=== PATIENT | male | born 1955 | race Caucasian/White ===

== ENCOUNTER → 2016-12-17 | Outpatient (CLI) | payer BC ==
[~2016-12-17] MED LIST: BRVIN INH; CALC600T9 PO; CINN1CAP2 PO; FLUT0.15; GARL10007 PO; MAGNESIUM PO; MULT-513 PO; OMEG10002 PO; PULMICORT FLEXHALER INH; VORI1TAB13 PEG
--- NOTE | 2016-12-17 14:14 | DIAGNOSTIC IMAGING REPORT ---
CHEST CT WITHOUT CONTRAST CT DOSE: 722.44 mGy.cm HISTORY: Atelectasis R91.1 Solitary pulmonary [id number] Chronic obstructive pulmonal TECHNIQUE: Multiaxial CT images of the chest were performed without contrast. COMPARISON: 06/18/2015 FINDINGS: Lungs are improved in aeration compared to the prior study. No evidence for focal infiltrate or significant nodular pathology. Appears described atelectatic change anterior margin of lingula is considerably improved with only a trace amount of residual. No significant mediastinal or hilar adenopathy. IMPRESSION: 1. Significant improvement in the CT of the chest with the lungs now essentially clear. 2. Minimal residual atelectatic change anterior margin of the lingula Electronically signed by: Giovanny Hanna M.D. 12/17/2016 2:13 PM Dictated Date/Time: 12/17/2016 2:09 PM
== END | disposition home or self-care (01) ==
LOC: C.CTS 13:55
PROVIDERS: ATTEND Internal Medicine Critical Care Medicine
DX: B44.81 Allergic bronchopulmonary aspergillosis (principal); J44.9 Chronic obstructive pulmonary disease, unspecified; R05 Cough; R91.1 Solitary pulmonary nodule

== ENCOUNTER → 2016-12-29 | Outpatient (CLI) | payer BC ==
--- NOTE | 2016-12-29 13:35 | DIAGNOSTIC IMAGING REPORT ---
FUSION CT SINUSES W/O HISTORY: J32.9 Chronic sinusitis TECHNIQUE: Multiaxial CT images of the sinuses were performed reformatted in the coronal plane without contrast. Fusion CT sinus protocol was also obtained. COMPARISON STUDY: Sinus CT 06/18/2015. FINDINGS: Mild mucosal thickening within the bilateral frontal sinuses with partial opacification the right frontoethmoidal recess and opacification of the left frontoethmoidal recess. There is near complete opacification of the ethmoid air cells which has slightly improved in the interval. Mild mucosal thickening within the sphenoid sinuses and right maxillary sinus. Moderate to severe mucosal thickening within the left maxillary sinus which has progressed. Trace right and moderate left maxillary sinus fluid levels. There is near complete opacification of the left maxillary sinus. Thinning of the bony septa within the ethmoid air cells, unchanged. This is consistent with chronic change. Bilateral anterior clinoids are pneumatized. The lamina papyracea and orbital floors are intact. No evidence for carotid canal dehiscence. The mastoid air cells are clear. Left nasal septal deviation with a left-sided nasal spur. Partial opacification of the right ostiomeatal unit and complete opacification of the left ostiomeatal unit. Bilateral Fer cells, right greater than left. The orbits and visualized brain parenchyma are unremarkable. IMPRESSION: 1. Acute on chronic paranasal sinusitis as described, the majority of which has improved in the interval. However, there is progressive opacification of the left maxillary sinus in comparison to the prior study. 2. Left nasal septal deviation with a left-sided nasal spur. Electronically signed by: Poncho Ley M.D. 12/29/2016 1:33 PM Dictated Date/Time: 12/29/2016 1:19 PM
== END | disposition home or self-care (01) ==
LOC: C.CTS 13:08
PROVIDERS: ATTEND Surgery
DX: J32.9 Chronic sinusitis, unspecified (principal); J34.2 Deviated nasal septum; J34.89 Other specified disorders of nose and nasal sinuses

== ENCOUNTER → 2017-07-07 | Outpatient (CLI) | payer BC ==
[~2017-07-07] MED LIST changes: +OPTIRAY 320 IV PRN
--- NOTE | 2017-07-07 18:25 | DIAGNOSTIC IMAGING REPORT ---
CT OF THE ABDOMEN AND PELVIS WITH CONTRAST CLINICAL HISTORY: Incarcerated hernia. COMPARISON STUDY: None. TECHNIQUE: Following IV administration of 93 mL of Optiray-320, axial images of the abdomen and pelvis were obtained from the lung bases to the proximal femurs. Images were reviewed in the axial, sagittal, and coronal planes. IV contrast was administered without complication. A dose lowering technique was utilized adhering to the principles of ALARA. Oral contrast was administered. CT DOSE: 1067.69 mGy.cm FINDINGS: The lung bases are clear. Fatty infiltration of the liver is noted. The spleen, adrenal glands, kidneys and pancreas are unremarkable. There is no hydronephrosis. There is a possible 2 mm nonobstructing left renal calculus. Caliber and wall thickness of small and large bowel are normal. The appendix is normal. There is no free fluid. There is no lymphadenopathy or abscess. There is a tiny fat-containing umbilical hernia. No inguinal hernia is identified by CT. No suspicious skeletal lesions identified. IMPRESSION: 1. No acute process within the abdomen or pelvis. 2. Tiny fat-containing umbilical hernia with minimal adjacent infiltration. 3. No bowel obstruction. Normal appendix. 4. Fatty liver. Electronically signed by: Sean Hale M.D. 07/07/2017 6:23 PM Dictated Date/Time: 07/07/2017 6:13 PM
== END | disposition home or self-care (01) ==
LOC: C.CTS 15:23
PROVIDERS: ATTEND Internal Medicine Critical Care Medicine
DX: K45.0 Other specified abdominal hernia with obstruction, without gangrene (principal); I26.02 Saddle embolus of pulmonary artery with acute cor pulmonale; R06.02 Shortness of breath

== ENCOUNTER 2017-09-04 08:04 | Day surgery (SDC) | payer BC ==
[~2017-09-04] VITALS: Ht 180.3 cm; Wt 102.7 kg
[2017-09-04] VITALS (14 sets, daily range): BP systolic 91–121; BP diastolic 43–89; PULSE 59–101; TEMP 36.5–36.6; O2SAT 95–100; Ht 180.3 cm; Wt 102.7 kg
[~2017-09-04 08:04] MED LIST changes: -OPTIRAY 320 IV PRN
[2017-09-04] MEDS ORDERED: LIDOCAINE 4% W/AFRIN NASAL SOLN 4ML ONE (08:05)
[2017-09-04] MEDS ORDERED: LEVALBUTEROL 1.25MG/3ML NEB INH ONE (08:05)
[2017-09-04] MEDS ORDERED: MIDAZOLAM HCL 5 MG/ML 1 ML VIAL IV ONE (08:05)
[2017-09-04] MEDS ORDERED: FENTANYL CITRATE INJ 50 MCG/1 ML 2 ML VIAL IV ONE (08:05)
[2017-09-04] MEDS ORDERED: LIDOCAINE HCL 2% LOCAL 50ML VIAL INFIL ONE (08:05)
[2017-09-04] MEDS ORDERED: PRED20TA PO (09:04)
[2017-09-04] MEDS ORDERED: ALBINS/ INH (09:05)
--- NOTE | 2017-09-04 10:06 | History & Physical Bridge Note ---
H&P Re-Evaluation Bridge Note: I have examined the patient, reviewed the History & Physical and in the interval since the performance of the History & Physical I have noted the following changes of clinical significance: No changes noted
--- NOTE | 2017-09-04 10:07 | Procedure Note ---
Pre-Mod Sedation Assessment General Date of Moderate Sedation: Sep 04, 2017. Vital Signs: Vital Signs Past 12 Hours Date Time Temp Pulse Resp B/P (MAP) Pulse Ox O2 Delivery O2 Flow Rate FiO2 09/04/17 10:03 36.5 66 19 117/74 96 Room Air 09/04/17 09:10 36.5 66 19 117/74 (88) 96 Room Air Review Airway Class: II Pre-Sedation Airway Assessment Oral Cavity: WNL Short Thick Neck: No Hx of Sleep Apnea: No Smoking Status: Former Smoker Mallampati Classification: Class II ASA Classification: Class II Procedure Planning Contraindications-for Mod Sed: None Yes Notes The planned sedation has been discussed with the patient and consent obtained. I have identified the patient, determined the appropriateness of sedation and have assessed the patient immediately prior to the procedure. All medicine(s) and interventions are by my order.
--- NOTE | 2017-09-04 10:46 | Discharge Instructions ---
Discharge Instructions Date of Service Sep 04, 2017. Admission Reason for Admission: Copd, Asthma, Sob Discharge Discharge Diagnosis / Problem: Chronic Mucopururlent Bronchitis Discharge Goals Goal(s): Therapeutic intervention Activity Recommendations Activity Limitations: resume your previous activity Lifting Limitations: none Exercise/Sports Limitations: none May Resume Sexual Activity: when tolerated Shower/Bathe: no limitations Driving or Machine Use: resume 1 day after discharge none . Current Hospital Diet Patient's current hospital diet: Discharge Diet Recommended Diet: Regular Diet Fluid Restriction: None Pending Studies Studies pending at discharge: no Medical Emergencies . Who to Call and When: Medical Emergencies: If at any time you feel your situation is an emergency, please call 911 immediately. . Non-Emergent Contact Non-Emergency issues call your: Form Tamper Operator Call Non-Emergent contact if: temperature is above 101 ACTIVITY RECOMMENDATIONS: * Rest today, resume normal activity tomorrow. * Do not drive today. SPECIAL CARE INSTRUCTIONS: * Call your physician if you experience any chest or shoulder pain, fever, coughing, spitting up blood (more than 2 teaspoons) or excessive shortness of breath. * Remove dressing from IV site (where needle was placed into the vein) after 2 hours. Apply a warm, moist compress to site if irritation occurs. Call physician if site becomes red or painful to touch. FOLLOW UP VISIT: * Keep any scheduled doctor appointments. . . "Provider Documentation" section prepared by Hugo Estes. . VTE Core Measure Inpt VTE Proph given/why not?: Treatment not indicated
--- NOTE | 2017-09-04 11:13 | OPERATIVE REPORT ---
DATE OF OPERATION: 09/04/2017 PROCEDURE: Fiberoptic bronchoscopy with bronchoalveolar lavage. SURGEON: Dr. Estes. INDICATIONS: Chronic cough/lingula atelectasis. ANESTHESIA PREOPERATIVELY: None. ANESTHESIA DURING PROCEDURE: 5 mg IV Versed, 50 mcg IV fentanyl, 20 mL 2% Xylocaine spray above and below the cords, 4% viscous Xylocaine intranasally. PROCEDURE: Fiberoptic bronchoscope was inserted into the right naris with minimal difficulty and passed to the level of the true vocal cords. The cords appeared to approximate normally with phonation without evidence of lesions or paralysis. The area was anesthetized with 2% Xylocaine spray and the scope was then introduced in the right and left tracheobronchial tree. The trachea was within normal limits. The tammy was sharp. The right main stem bronchus was found to be free of endobronchial lesions. The right upper lobe, the apical posterior, anterior segments, bronchus intermedius, right middle lobe and the medial and lateral segments and all basilar segments right lower lobe were found to be free of endobronchial lesions. A moderate amount of mucopurulent secretion was lavaged from right lower lobe until clear. Mucus pitting with bronchial crypts and clefts were seen throughout the right tracheobronchial tree. Left tracheobronchial tree was explored and no endobronchial lesions were seen. The left upper lobe, the apical-posterior and anterior segments, lingular subdivision, left lower lobe were free of endobronchial lesions down to subsegmental bronchi. Superior segment left lower lobe demonstrated most inflammatory response and had significant mucus pitting with mucopurulent secretion lavaged from it until clear. All basilar segments left lower lobe and the left upper division along with its segmental bronchi were found to be free of endobronchial lesions. A global degree of inflammatory mucosal change was seen throughout the left tracheobronchial tree. No brushings or biopsies were deemed necessary. Fluoroscopy was not utilized. The procedure was terminated. The patient tolerated the procedure well and was given a nebulizer treatment with Xopenex 1.25 mg then transferred to the medical treatment unit hemodynamically stable with no signs of respiratory compromise. Will await microbiological and cytologic examination of the bronchial washings. I attest to the content of the Intraoperative Record and any orders documented therein. Any exception s are noted below.
[2017-09-04] MEDS ORDERED: NURSING VERBAL MED ORDER ONE (11:15)
[2017-09-08 15:31] LABS: HERPES SIMPLEX CULT SOURCE OTHER-LLL BRONCH WAS; HERPES SIMPLEX VIRUS CULT NOT ISOLATED (NOT ISOLATED)
== END 2017-09-04 12:40 | disposition home or self-care (01) ==
LOC: C.ACU 08:04
PROVIDERS: ATTEND Internal Medicine Pulmonary Disease
DX: R05 Cough (principal); J98.11 Atelectasis; R00.0 Tachycardia, unspecified; J44.9 Chronic obstructive pulmonary disease, unspecified; B44.81 Allergic bronchopulmonary aspergillosis; I26.99 Other pulmonary embolism without acute cor pulmonale; J32.9 Chronic sinusitis, unspecified; K21.9 Gastro-esophageal reflux disease without esophagitis; K45.0 Other specified abdominal hernia with obstruction, without gangrene; R59.0 Localized enlarged lymph nodes; R91.1 Solitary pulmonary nodule; Z87.891 Personal history of nicotine dependence; Z79.899 Other long term (current) drug therapy

== ENCOUNTER 2018-01-25 07:40 | Day surgery (SDC) | payer BC ==
[~2018-01-25] VITALS: Ht 180.3 cm; Wt 105.0 kg
--- NOTE | 2018-01-25 06:40 | History and Physical ---
History & Physical Date of Service Jan 25, 2018. History & Physical 62-year-old male here for bronchoscopic evaluation of increasing shortness of breath with productive sputum: Patient has a PmHx: Significant for ABPA, bilateral pulmonary embolism/IVC filter, chronic sinusitis, chronic obstructive pulmonary disease, GERD, hypersensitivity pneumonitis, nasal polyps and allergic alveolitis/pneumonitis. Patient notes that he has been having increasing green colored mucus and nonresponsive to current interventions. He notes he is having increasing dyspnea and has had a change recently as he is unable to clear his sputum. He has had previous bronchoscopic evaluations with noted pathologic growth. Most recent CT performed 01/08/2018 did show resolution of previously seen left upper lobe ground-glass opacification with interval development of a ground- glass opacification within lingula. Active Problems 1. Acute pharyngitis (J02.9) 2. 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 Asthma (J45.909) 5. Bilateral pulmonary embolism (I26.99) 6. Chronic obstructive pulmonary disease (J44.9) 7. Chronic sinusitis (J32.9) 8. Cough (R05) 9. Deviated nasal septum (J34.2) 10. Diarrhea (R19.7) 11. Enlargement of lymph node (R59.9) 12. Extrinsic asthma (J45.909) 13. GERD without esophagitis (K21.9) 14. Hearing loss (H91.90) 15. Hypersensitivity pneumonitis (J67.9) 16. Hypertrophy of nasal turbinates (J34.3) 17. Incarcerated hernia of abdominal cavity (K45.0) 18. Mediastinal adenopathy (R59.0) 19. Nasal polyps (J33.9) 20. Presence of IVC filter (Z95.828) 21. Saddle embolus of pulmonary artery with acute cor pulmonale (I26.02) 22. Shortness of breath (R06.02) 23. Solitary pulmonary nodule (R91.1) 24. Tachycardia (R00.0) Past Medical History 1. History of Closed fracture of a rib (S22.39XA) 2. History of Compression fracture of lumbar vertebra (S32.000A) 3. History of Eosinophilic pneumonia (J82) 4. History of Pulmonary aspergillosis (B44.1) Surgical History 1. History of Bronchoscopy (Diagnostic) 2. History of Elbow Surgery 3. History of Repair Of Humerus / Arm Family History 1. Family history of Anxiety 2. Family history of coronary artery disease (Z82.49) 3. Family history of deep venous thrombosis (Z82.49) Social History Former smoker (Z87.891) Current Meds 1. Brovana 15 MCG/2ML Inhalation Nebulization Solution; INHALE THE CONTENTS OF 1 2. Montelukast Sodium 10 MG Oral Tablet; TAKE 1 TABLET DAILY; 3. ZyrTEC Allergy 10 MG Oral Tablet; TAKE 1 TABLET AT BEDTIME; 4. PredniSONE 10 MG Oral Tablet; Take one tablet daily Requested for: 29Oct2017 ; Last 5. Albuterol Sulfate (2.5 MG/3ML) 0.083% Inhalation Nebulization Solution; USE 1 UNIT 6. Trelegy Ellipta 100-62.5-25 MCG/INH Inhalation Aerosol Powder Breath Activated; One Allergies 1. Aspirin TABS Immunizations Influenza --- Series1: Jul 2015; Series2: 04-Aug-2015; Series3: 12-Jul-2016 Vital Signs Height: 5 ft 11 in Weight: 233 lb BMI Calculated: 32.5 BSA Calculated: 2.25 Temperature: 97.8 F Heart Rate: 77 Respiration: 20 Blood Pressure: 121 / 75, RUE, Sitting O2 Saturation: 94, RA Constitutional General appearance: No acute distress, well appearing and well nourished. Eyes Conjunctiva and lids: No swelling, erythema, or discharge. Pupils and irises: Equal, round and reactive to light. Ears, Nose, Mouth, and Throat External inspection of ears and nose: Normal. Otoscopic examination: Tympanic membrance translucent with normal light reflex. Canals patent without erythema. Oropharynx: Normal with no erythema, edema, exudate or lesions. Pulmonary Respiratory effort: No increased work of breathing or signs of respiratory distress. Auscultation of lungs: Abnormal. coarse wheezes diffusely. Cardiovascular Palpation of heart: Normal PMI, no thrills. Auscultation of heart: Normal rate and rhythm, normal S1 and S2, without murmurs. Examination of extremities for edema and/or varicosities: Normal. Abdomen Abdomen: Non-tender, no masses. Liver and spleen: No hepatomegaly or splenomegaly. Lymphatic Palpation of lymph nodes in neck: No lymphadenopathy. Musculoskeletal Gait and station: Normal. Digits and nails: Normal without clubbing or cyanosis. Inspection/palpation of joints, bones, and muscles: Normal. Skin Skin and subcutaneous tissue: Normal without rashes or lesions. Neurologic Cranial nerves: Cranial nerves 2-12 intact. Reflexes: 2+ and symmetric. Sensation: No sensory loss. Psychiatric Orientation to person, place and time: Normal. Mood and affect: Normal.
[~2018-01-25 07:40] MED LIST changes: +ALBINS/ INH; -CALC600T9 PO; -CINN1CAP2 PO; -FLUT0.15; -GARL10007 PO; -MAGNESIUM PO; -OMEG10002 PO; +PRED20TA PO; -PULMICORT FLEXHALER INH; -VORI1TAB13 PEG
--- NOTE | 2018-01-25 09:24 | Pre Sedation Assessment ---
Pre Sedation Assessment General Date of Sedation: Jan 25, 2018. Review Cardiovascular: regular rate, rhythm, no edema, no gallop, no JVD, no murmur, normal peripheral pulses Lungs: + wheezing Pre-Sedation Airway Assessment Smoking Status: Former Smoker Hx of Sleep Apnea: Yes Hx of difficult intubation: No Short Thick Neck: Yes Thyro-mental Distance: > 3 Finger Breadths Oral Cavity: WNL Mallampati Classification: Class II ASA Classification: Class II Procedure Planning Contraindications for Sedation: None Current Medications Reviewed: Yes Notes The planned sedation has been discussed with the patient. Informed Consent was obtained. I have identified the patient, determined the appropriateness of sedation and have assessed the patient immediately prior to the procedure. All medicine(s) and interventions are by my order.
[2018-01-25 09:34] VITALS: BP 119/79; PULSE 62; TEMP 36.7; O2SAT 96; Ht 180.3 cm; Wt 105.0 kg
[2018-01-25] MEDS ORDERED: NURSING VERBAL MED ORDER ONE (10:00)
[2018-01-25] MEDS ORDERED: DEXTROSE 5% 500ML 500 ML IV SCH (10:00)
--- NOTE | 2018-01-25 10:54 | Post Sedation Assessment ---
Post Sedation Assessment General Date of Sedation Jan 25, 2018. Vital Signs: Vital Signs Past 12 Hours Date Time Temp Pulse Resp B/P (MAP) Pulse Ox O2 Delivery O2 Flow Rate FiO2 01/25/18 10:45 83 21 115/76 100 Mask 6 01/25/18 10:40 73 20 123/81 100 Mask 6 01/25/18 10:35 61 20 110/70 100 Mask 8 01/25/18 10:30 61 21 112/77 100 Mask 8 01/25/18 10:25 67 18 110/72 99 Mask 4 01/25/18 09:34 36.7 62 20 119/79 (92) 96 Room Air Post Procedure Recovery Score Activity: (2) Moves 4 extremities * Respiration: (2) Deep breath/cough Circulation: (2) +/-20% PreAnes Value Consciousness: (2) Fully Awake Oxygen Saturation: (2) > 92% On Room Air Discharge Sedation Level of Care: Fast Track Phase II Post Sedation Plan On clinical assessment, the patient appears to have tolerated the sedation without complications. Patient is recovering as anticipated. Patient will continue to be monitored by nursing and may be discharged when sedation discharge criteria are met per below protocol. Upon Completions of procedure and additional 15 minutes continue every 5 minute vital signs and the P.A.R. score; then discharge to a Phase I or Fast Track to Phase II per the following guidelines: * Discharge Patient to appropriate Phase II area if PAR is 8 or greater or return to pre- procedure baseline. The post - procedure orders will be as directed. * If PAR score is less than 8 or not return to pre-procedure baseline then patient will follow Phase I monitoring till PAR is reached for Phase II. The Phase I may be done in procedure room or may call to secure a Phase I area. * If naloxone or flumazenil are used for reversal, hold in Phase I for an additional 60 -120 minutes before discharge to Phase II. Please call the Sedation Physician to re-evaluate and complete post-note for discharge to Phase II area. Do NOT discharge from procedure sedation or Phase 1 until post- sedation evaluation note is complete by procedure /sedation MD Sedation Discharge Instructions to be given to the patient at discharge to home.
--- NOTE | 2018-01-25 10:55 | Bronchoscopy Procedure Note ---
Bronchoscopy Procedure Note Procedure: Bronchoscopy, conscious sedation, bronchial washing Consent: Obtained through the patient placed into the chart Pre-procedural diagnosis: Bronchiectasis with chronic cough Post-procedural diagnosis: Bronchiectasis with chronic cough Start time: 1036 End time: 1049 Total time: 13minutes Analgesia: 2% liquid lidocaine: Via nebulizer 4% gel lidocaine: Via right naris 2% liquid lidocaine: Via bronchoscopy Sedation: Versed IV: 5mg Fentanyl IV: 100g Procedure: The Olympus video bronchoscope was used for this procedure and passed down through the right naris Right naris/posterior naris/posterior oropharynx: Notable erythema and previous noted surgical intervention Glottis: Anatomically within normal limits Vocal cords: Proper abduction and abduction, anatomically within normal limits Subglottis/trachea/Anna: Anatomically within normal limits Right bronchial tree: Right mainstem bronchus: Anatomically within normal limits Right upper lobe: Anatomically within normal limits Bronchus intermedius: Anatomically within normal limits Right middle lobe: Anatomically within normal limits Right lower lobe: Anatomically within normal limits Findings: No significant findings noted Left bronchial tree: Left mainstem bronchus: Anatomically within normal limits Left upper lobe: Anatomically within normal limits Lingula: Anatomically within normal limits Left lower lobe: Anatomically within normal limits Findings: No significant findings noted Bronchial alveolar lavage: Lingula EBL: None Complications: None Follow-up: ASU
--- NOTE | 2018-01-25 10:57 | Discharge Instructions ---
Discharge Instructions Date of Service Jan 25, 2018. Admission Reason for Admission: Pulmonary Nodule, Shortness Of Breath Discharge Discharge Diagnosis / Problem: Bronchiectasis with associated chronic cough Discharge Goals Goal(s): Diagnostic testing Activity Recommendations Activity Limitations: resume your previous activity Shower/Bathe: no limitations Driving or Machine Use: resume 1 day after discharge . Instructions / Follow-Up Instructions / Follow-Up Follow-up with Dr. Hugo Estes in the pulmonary clinic Current Hospital Diet Patient's current hospital diet: Discharge Diet Recommended Diet: Regular Diet Procedures Procedures Performed: Bronchoscopy, conscious sedation, bronchial lavage of the lingula Pending Studies Studies pending at discharge: no Medical Emergencies . Who to Call and When: Medical Emergencies: If at any time you feel your situation is an emergency, please call 911 immediately. . Non-Emergent Contact Non-Emergency issues call your: Torpedo Shooter Call Non-Emergent contact if: you have a fever, temperature is above 101 . . "Provider Documentation" section prepared by Ever Grissom. .
[2018-01-25] MEDS ORDERED: LIDOCAINE VISCOUS 2% 100ML TOP ONE (11:07)
[2018-01-25] MEDS ORDERED: FENTANYL CITRATE INJ 50 MCG/1 ML 2 ML VIAL IV ONE (11:07)
[2018-01-25] MEDS ORDERED: LIDOCAINE 4% INH SOLN 4 ML BTL TOP ONE (11:07)
[2018-01-25] MEDS ORDERED: LIDOCAINE HCL 2% LOCAL 50ML VIAL INSTIL ONE (11:07)
[2018-01-25] MEDS ORDERED: MIDAZOLAM HCL 5 MG/ML 1 ML VIAL IV ONE (11:07)
[2018-01-25 11:15] VITALS: BP 102/70; PULSE 79; TEMP 36.5; O2SAT 94
[2018-01-25 11:53] VITALS: BP 106/77; PULSE 59; TEMP 36.4; O2SAT 95
[2018-01-25 12:34] VITALS: BP 113/73; PULSE 63; TEMP 36.5; O2SAT 95
[2018-01-25 13:10] VITALS: BP 117/75; PULSE 78; O2SAT 97
[2018-01-25 13:35] VITALS: BP 117/73; PULSE 62; TEMP 36.6; O2SAT 95
== END 2018-01-25 13:40 | disposition home or self-care (01) ==
LOC: C.ACU 07:40
PROVIDERS: ATTEND Internal Medicine Critical Care Medicine
DX: J47.9 Bronchiectasis, uncomplicated (principal); R91.1 Solitary pulmonary nodule; J45.909 Unspecified asthma, uncomplicated; K21.9 Gastro-esophageal reflux disease without esophagitis; Z88.6 Allergy status to analgesic agent; Z98.890 Other specified postprocedural states; Z87.891 Personal history of nicotine dependence; Z95.828 Presence of other vascular implants and grafts; Z79.899 Other long term (current) drug therapy; Z79.52 Long term (current) use of systemic steroids; Z82.49 Family history of ischemic heart disease and other diseases of the circulatory system

== ENCOUNTER → 2018-02-25 | Day surgery (SDC) | payer BC ==
[2018-02-22 13:30] VITALS: Ht 180.3 cm; Wt 104.5 kg
--- NOTE | 2018-02-24 15:01 | History and Physical: Surg Cnt ---
History & Physical Date February 24, 2018. Chief Complaint sinus infections History of Present Illness The patient is a 62 year old male with complaints of chronic sinusitis, surgeries in [place] 2016 and 17, feels worse, constant infection Additional History Hepatic Disease: No Endocrine Disorder: No Kidney Disease: No Hypertension: No Heart Disease: No Bleeding Tendencies: No Infectious Diseases: No Allergies Coded Allergies: Aspirin (Verified Allergy, Mild, CAUSED POLYPS IN NASAL PASSAGE-ADVISED NOT TO TAKE BY MD, 02/22/18) Home Medications Scheduled Amoxicillin & Pot Clavulanate (Augmentin 500MG), Unknown Dose PO BID Multivitamin (Multivitamin), 1 TAB PO DAILY Prednisone (Prednisone), 1 TAB PO BID Scheduled PRN Albuterol Hfa (Ventolin Hfa), 2-4 PUFFS INH Q6H PRN for Shortness of Breath Albuterol Sulf (Proventil 0.083% 2.5MG/3ML), 2.5 MG INH QID PRN for SOB/Wheezing Physical Examination Skin: warm/dry, no rash Eyes: normal inspection, EOMI, sclerae normal ENT: + pertinent finding (mucopus, polyps, wide antrostomies, turbinectomies) Head: normocephalic, atraumatic Neck: supple, no adenopathy, trachea midline Respiratory/Chest: lungs clear, normal breath sounds, no respiratory distress Cardiovascular: regular rate, rhythm, no edema, no murmur Abdomen / GI: normal bowel sounds, non tender Back: normal inspection Extremities: normal inspection, normal range of motion Diagnosis chronic sinusitis Plan of Treatment revision endoscopic sinus surgery
[~2018-02-25] VITALS: Ht 180.3 cm; Wt 104.5 kg
[~2018-02-25] MED LIST changes: +AMOX500T PO; +AMOX875T PO; +ATROPINE SULFATE 0.1 MG/ML 5ML SYR IV PRN; -BRVIN INH; +DEXAMETHASONE SOD INJ 4 MG/ML VIAL ONE; +EpHEDrine SULFATE INJ 50 MG/ML AMP IV PRN; +EpINEphrine INJ 1MG/ML AMP 1 MG/ML AMP ONE; +FENTANYL CITRATE INJ 50 MCG/1 ML 2 ML VIAL IV PRN; +FENTANYL CITRATE INJ 50 MCG/1 ML 2 ML VIAL ONE; +GENTAMICIN SULFATE 40 MG/ML 2 ML VIAL ONE; +HYDROCORTISONE SOD SUCCINATE 100 MG/2 ML VIAL ONE; +LACTATED RINGER'S 1000ML 1,000 ML IV SCH; +LIDO 2%/EPINEPHRINE 1:100000 20 ML VIAL ONE; +LIDOCAINE 4% MPF SOAK 5 ML = 1 DOSE ONE; +LIDOCAINE HCL 2% 2 ML VIAL (20MG/ML) ONE; +MIDAZOLAM HCL 1 MG/ML 2ML VIAL ONE; +MULT-506 PO; -MULT-513 PO; +ONDANSETRON INJ 2 MG/ML 2 ML VIAL IV PRN; +ONDANSETRON INJ 2 MG/ML 2 ML VIAL ONE; +OXYC-57 PO; +OXYCODONE/ACETAMINOPHEN 5-325 TAB PO PRN; +PROPOFOL IV EMULSION 10 MG/ML 20 ML VIAL ONE; +SODIUM CHLORIDE 0.9% 1000ML 1,000 ML IV SCH; +VNTHFA/IN INH
--- NOTE | 2018-02-25 13:00 | Discharge Instructions-SurgCtr ---
Discharge Instructions Date of Service February 25, 2018. Visit Reason for Visit: Chronic Sinusitis Discharge Discharge Diagnosis / Problem: same Discharge Goals Goal(s): Improve disease control Activity Recommendations Activity Limitations: resume your previous activity Anesthesia . Post Anesthesia Instructions: If you have had General Anesthesia or IV Sedation: * Do not drive today. * Resume driving when surgeon permits. * Do not make important decisions or sign legal documents today. * Call surgeon for: 1. Temperature elevations greater than 101 degrees F. 2. Uncontrollable pain. 3. Excessive bleeding. 4. Persistent nausea and vomiting. 5. Medication intolerance (nausea, vomiting or rash). * For nausea and vomiting use only clear liquids such as: tea, soda, bouillon until nausea subsides, then gradually increase diet as tolerated. * If you have any concerns or questions, call your surgeon's office. If physician is unavailable and it is an emergency, call 911 or go to the nearest emergency room. . Instructions / Follow-Up Instructions / Follow-Up ACTIVITY RECOMMENDATIONS: * Being up and around is good, but no strenuous activity, heavy lifting or physical exertion for one week. * Keep your head elevated 30 degrees when lying down or sleeping. * Do not blow your nose for 48 hours, sniff back instead. * Avoid hot showers. OVER THE COUNTER MEDICATIONS: * You may use Tylenol * Avoid aspirin or aspirin containing products, e.g. as they may increase bleeding. SPECIAL CARE INSTRUCTIONS: * Expect to have bloody drainage from your nose and/or down your throat for one to three days. Change drip pad as needed. * Begin irrigating your nose with saline solution today, at least six to ten times per day and sniff back to help remove old clots or crust. * You may experience nasal and facial congestion, pain and pressure, this is normal. * Please call with any significant and/or progressive pain, redness, swelling around the eyes, visual changes, fever of 101.5 degrees F, active bleeding or any problems or concerns. * If active bleeding occurs, spray the nose three times at one minute intervals with Afrin spray and call or cell phone: . If unable to reach the doctor, go to the nearest Emergency Department. Special Diet: * Avoid extremely hot fluids. FOLLOW UP VISIT: Follow-up Visit with Dr. Pennington If not already scheduled, please call to schedule. Diet Recommendations Home Diet: no limitations Procedures Procedures Performed: Endoscopic Sinus Surgery, Right And Left Frontal, Right And Left Maxillary, Right and Left Spheniod, Right and Left Total Ethmoidectomies Pending Studies Studies pending at discharge: no Medical Emergencies . Who to Call and When: Medical Emergencies: If at any time you feel your situation is an emergency, please call 911 immediately. . Non-Emergent Contact Non-Emergency issues call your: Primary Care Provider, Global Logistics Analyst . . "Provider Documentation" section prepared by Kendal Pennington. . [place] Drug Monitoring Program Search Results: no issues identified
--- NOTE | 2018-02-25 13:00 | [facility] Post Operative Brief Note ---
Immediate Operative Summary Operative Date February 25, 2018. Pre-Operative Diagnosis Chronic sinusitis Post-Operative Diagnosis Same as preop Procedure(s) Performed Endoscopic Sinus Surgery, Right And Left Frontal, Right And Left Maxillary, Right and Left Spheniod, Right and Left Total Ethmoidectomies Surgeon Dr. Pennington Tool Crib Attendant Surgeon(s) None Estimated Blood Loss 75ml Findings Consistent with Post-Op Diagnosis Specimens Culture #1 - Left maxillary sinus for anaerobic, aerobic, and fungal Drains None Anesthesia Type General Complication(s) none Disposition Accompanied Pt To Recovery: yes Disposition: Recovery Room / PACU
[2018-02-25 13:40] VITALS: TEMP 36.4
--- NOTE | 2018-02-25 14:03 | Anesthesia Progress Nt - [facility] ---
Anesthesia Post Op Note Date & Time February 25, 2018 at 14:03 Vital Signs Pain Intensity: 4 Vital Signs Past 12 Hours Date Time Temp Pulse Resp B/P (MAP) Pulse Ox O2 Delivery O2 Flow Rate FiO2 02/25/18 13:40 36.4 61 16 112/69 (83) 96 Room Air 02/25/18 13:32 74 16 95 02/25/18 13:32 36.5 65 16 02/25/18 13:31 139/84 02/25/18 13:27 63 11 02/25/18 13:27 62 11 97 02/25/18 13:26 149/79 02/25/18 13:22 69 18 99 02/25/18 13:22 70 18 02/25/18 13:21 143/86 02/25/18 13:17 70 20 02/25/18 13:17 67 20 100 02/25/18 13:16 133/82 02/25/18 13:12 72 14 98 02/25/18 13:12 75 14 02/25/18 13:11 141/84 02/25/18 13:07 52 14 02/25/18 13:07 51 14 99 02/25/18 13:06 146/84 02/25/18 13:03 36.2 76 16 153/90 98 Humidified Oxygen 6 Mask 02/25/18 13:02 153/90 02/25/18 11:08 36.8 82 20 121/83 (96) 95 Room Air Notes Mental Status: alert / awake / arousable, participated in evaluation Pt Amnestic to Procedure: Yes Nausea / Vomiting: adequately controlled Pain: adequately controlled Airway Patency, RR, SpO2: stable & adequate BP & HR: stable & adequate Hydration State: stable & adequate Anesthetic Complications: no major complications apparent
[2018-02-25 14:09] VITALS: BP 125/76; PULSE 62; O2SAT 98
--- NOTE | 2018-02-25 14:59 | OPERATIVE REPORT ---
DATE OF OPERATION: 02/25/2018 PREOPERATIVE DIAGNOSIS: Chronic sinusitis. POSTOPERATIVE DIAGNOSIS: Chronic sinusitis. PROCEDURE: Right and left frontal, right and left sphenoid, right and left total ethmoid, and right and left maxillary sinus antrostomy. SURGEON: Kendal Pennington MD ANESTHESIA: General LMA. COMPLICATIONS: None. BLOOD LOSS: 75 mL. HISTORY: This is a 62-year-old gentleman with significant recurrent chronic sinusitis, status post sinus surgery which included middle turbinate resection a year ago. This has become worse developing chronic bronchitis, requiring treatment with high doses of prednisone and he was referred by Dr. Estes for definitive treatment. DESCRIPTION OF PROCEDURE: The patient was brought to the operating room and placed in supine position. General anesthesia was induced using LMA, prepped and draped in usual sterile manner. The [employer] device was calibrated and used for the entire procedure. The endoscope was used. The left maxillary sinus was filled with purulent material. Culture was taken of the left maxillary sinus. At this point, the right nasofrontal duct was cannulated with guidewire and dilated using a 6 mm balloon with CM [employer] computer guidance. The guidewire was left in place as a marker for frontal sinusotomy. The agger nasi cell was still present. The agger nasi cell was opened by removing the anterior wall and then the posterior wall of the agger nasi cell up to the nasofrontal duct. There were adhesions blocking the superior ethmoid air cells. These were opened using the shaver coupled with the [employer] device opening up the anterior and then the posterior ethmoid air cell superiorly. The adhesions over the sphenoid ostia was opened using the shaver. 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 This missed ostia was probed using the seeker and then connected to the antrostomy opening using the shaver to remove the band of tissue between the natural opening and the antrostomy opening. In this manner, the right side was completed. On the left side, there was more purulent material. Frontal sinusotomy was again performed by dilating it with a balloon and then using the wire as a marker for frontal sinusotomy again, opening up the agger nasi cell and removing all the residual superior ethmoid air cells from anteriorly to posteriorly. The sphenoid was also opened as was the maxillary sinus by removing the adhesions. The frontal sinuses were irrigated clean with 20 mL of gentamicin through the balloon catheters. The left maxillary sinus was irrigated clean with 200 mL of gentamicin solution to wash out the left maxillary sinus. Contour stents were placed in each nasofrontal duct. The patient tolerated the procedure well and was taken to recovery area in satisfactory condition. I attest to the content of the Intraoperative Record and any orders documented therein. Any exception s are noted below.
== END | disposition home or self-care (01) ==
LOC: X.SURG 10:43
PROVIDERS: ATTEND Otolaryngology
DX: J32.9 Chronic sinusitis, unspecified (principal); Z79.82 Long term (current) use of aspirin; Z88.6 Allergy status to analgesic agent; J44.9 Chronic obstructive pulmonary disease, unspecified; Z86.711 Personal history of pulmonary embolism; E66.9 Obesity, unspecified; Z92.241 Personal history of systemic steroid therapy; Z87.891 Personal history of nicotine dependence